=== PATIENT | male | born 1965 | race Caucasian/White ===

== ENCOUNTER 2024-05-17 10:35 | Day surgery (SDC) | payer BC ==
[~2024-05-17 10:35] MED LIST: Sodium Chloride 0.9% 10 ML Syringe FLUSH PRN; Sodium Chloride 0.9% 2.5 ML Syringe FLUSH PRN; Sodium Chloride 0.9% 20 ML SDV IV PRN
[2024-05-17] MEDS: Lactated Ringers 1,000 ML IV SCH (11:44)
[2024-05-17] MEDS ORDERED: Lidocaine 2% 5 ML SDV ONE (12:32)
[2024-05-17] MEDS ORDERED: Propofol 200 MG/20 ML SDV ONE ×2 (12:32→12:33)
== END 2024-05-17 13:45 | disposition home or self-care (01) ==
LOC: MW.SDS 10:35
PROVIDERS: ATTEND Surgery
DX: D12.2 Benign neoplasm of ascending colon (principal); K57.30 Diverticulosis of large intestine without perforation or abscess without bleeding; I10 Essential (primary) hypertension; E78.00 Pure hypercholesterolemia, unspecified; K42.9 Umbilical hernia without obstruction or gangrene; K40.91 Unilateral inguinal hernia, without obstruction or gangrene, recurrent; Z79.899 Other long term (current) drug therapy
CPT/HCPCS: 45385; J2704; J7120; 00811; J3490

== ENCOUNTER 2024-07-31 11:26 | Day surgery (SDC) | payer BC ==
[~2024-07-31 11:26] MED LIST changes: +Albuterol 0.083% 2.5 MG/3 ML Neb Soln NEB PRN; +Bupivacaine 0.5% 30 ML SDV ONE; +Metoclopramide 10 MG/2 ML SDV IVPUSH PRN; +Morphine 2 MG/ML SYRINGE IVPUSH PRN; +Naloxone 0.4 MG/ML SDV IVPUSH PRN; +Ondansetron 4 MG/2 ML SDV IVPUSH PRN; +Phenylephrine HCl In 0.9% NaCl 1 MG/10 ML Syringe IVPUSH PRN; +ceFAZolin 2 GM in Sodium Chloride 0.9% 50 ML IV ONE; +fentaNYL 50 MCG/ML SDV IVPUSH PRN
[2024-07-31] MEDS ORDERED: Midazolam 1 MG/ML 2 ML SDV ONE (11:31)
[2024-07-31] MEDS ORDERED: Propofol 200 MG/20 ML SDV ONE (11:31)
[2024-07-31] MEDS ORDERED: fentaNYL 100 MCG/2 ML SDV ONE (11:31)
[2024-07-31] MEDS ORDERED: Dexamethasone 4 MG/ML 5 ML MDV ONE (11:33)
[2024-07-31] MEDS ORDERED: Rocuronium Bromide 50 MG/5 ML Syringe ONE ×2 (11:33→13:13)
[2024-07-31] MEDS ORDERED: Lidocaine 1% 5 ML VIAL ONE (11:33)
[2024-07-31] MEDS ORDERED: Ondansetron 4 MG/2 ML SDV ONE (11:33)
[2024-07-31] MEDS ORDERED: Morphine 10 MG/ML SDV ONE (11:34)
[2024-07-31] MEDS ORDERED: Ropivacaine 0.5% 5 MG/ML 30 ML SDV ONE (11:37)
[2024-07-31] MEDS: Lactated Ringers 1,000 ML IV SCH (12:00)
[2024-07-31] MEDS ORDERED: ceFAZolin 1 GM Vial ONE (12:23)
[2024-07-31] MEDS ORDERED: Sugammadex Sodium 200 MG/2 ML VIAL IV ONE (12:51)
[2024-07-31] MEDS ORDERED: Ketorolac 30 MG/ML SDV ONE (12:51)
[2024-07-31] MEDS: HYDROmorphone 1 MG/ML Syringe IVPUSH PRN (15:47)
== END 2024-07-31 17:55 | disposition home or self-care (01) ==
LOC: MW.SDS 11:26
PROVIDERS: ATTEND Surgery
DX: K40.91 Unilateral inguinal hernia, without obstruction or gangrene, recurrent (principal); K40.90 Unilateral inguinal hernia, without obstruction or gangrene, not specified as recurrent; K42.9 Umbilical hernia without obstruction or gangrene; I10 Essential (primary) hypertension; E78.5 Hyperlipidemia, unspecified; Z79.899 Other long term (current) drug therapy
CPT/HCPCS: 49591; 49650; 49651; 64488; J0131; J0665; J0690; J1100; J1171; J1885; J2250; J2272; J2405; J2704; J2795; J3010; J3490; J7120